=== PATIENT | female | born 1950 | race Caucasian/White ===

== ENCOUNTER → 2020-03-27 | Outpatient (CLI) | payer MEDICARE ==
[~2020-03-27] MED LIST: B-122500 PO; CALC1TAB63 PO; CIPR-249 PO; D31000TA2 PO; ECOT81TA5 PO; FLUTISP INH; GLUCINJ SC; HYDR-3363 PO; IBUP200C25 PO; LIDOCAINE 1% MDV 20ML VIAL As Ordered ONE; METF-838 PO; METR-135 PO; NOVOINJ3 SC; OMEP-221 PO; PRAV10TA3 PO; SODIUM BICARBONATE 8.4% INJ 50MEQ 50 ML VIAL As Ordered ONE; SPIR50TA4 PO; TRAD5TAB PO; TRES1INJ SC; URSO300C3 PO; VITA1CAP25 PO; VITMTA PO; ZINC1TAB2 PO
[2020-03-27 13:40] VITALS: BP 116/78
--- NOTE | 2020-03-27 16:45 | REP ---
INDICATION: RT ENLARGED LYMPH NODE. COMPARISON: None. TECHNIQUE: The procedure was performed by Thuy Casas [facility], under the direct supervision of Dr. Ervin. The risks and benefits of the procedure were explained to the patient and an informed consent was obtained both verbally and written. Directly prior to the start of the procedure a formal time-out was completed in the procedure room. FINDINGS: Using ultrasound guidance the right axillary lymph node was localized. The skin was prepped and draped in a sterile fashion. Five mL of buffered lidocaine was used as a local anesthetic. Using ultrasound guidance a 17/18 gauge coaxial needle biopsy system was inserted and advanced into the right axillary lymph node. Eight core biopsy specimens were obtained. Four specimens were sent to our lab here, and remaining 4 were sent out in RPMI solution, for further testing The patient tolerated the procedure well and there were no immediate complications. After the appropriate amount of monitored convalescence the patient was discharged from the department. IMPRESSION: 1. Ultrasound-guided right axillary lymph node biopsy. <Electronically signed by Thuy Casas > 03/27/20 1520 <Electronically signed by Joselito Ervin > 03/27/20 1641
== END ==
LOC: M IRPRO 12:19
PROVIDERS: ATTEND Internal Medicine Medical Oncology
DX: C91.10 Chronic lymphocytic leukemia of B-cell type not having achieved remission (principal); C83.00 Small cell B-cell lymphoma, unspecified site; R59.0 Localized enlarged lymph nodes; Z79.4 Long term (current) use of insulin; Z79.82 Long term (current) use of aspirin; Z79.899 Other long term (current) drug therapy; Z88.5 Allergy status to narcotic agent; Z88.6 Allergy status to analgesic agent; Z88.8 Allergy status to other drugs, medicaments and biological substances

== ENCOUNTER → 2020-05-02 | Outpatient (CLI) | payer MEDICARE, OTHER ==
[~2020-05-02] MED LIST changes: -LIDOCAINE 1% MDV 20ML VIAL As Ordered ONE; +SITA50TAB PO; -SODIUM BICARBONATE 8.4% INJ 50MEQ 50 ML VIAL As Ordered ONE
--- NOTE | 2020-05-04 15:18 | REP ---
INDICATION: RESTAGING LYMPHOMA RIGHT AXILLARY LYMPHNODE. Right axillary lymphadenopathy seen on recent breast MRI study. 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 There is apparently also history of nodular peritoneal thickening posterior to a collection in the left upper quadrant. 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 COMPARISON: Comparison sonography February 14, 2020. Comparison MRI study of the abdomen is from [facility] 13 January 2020. Comparison breast MRI study is retrieved from January 18, 2020 done at [facility].. TECHNIQUE: Forty-nine minutes following the intravenous injection of a 8.60 mCi dose of F-18 FDG, three-dimensional PET scintigraphy is acquired from the skull base to the proximal thighs. Triplanar noncontrast CT scanning is acquired through the same anatomic range for attenuation correction, and image registration with scan parameters optimized to minimize radiation exposure to the patient. PET scintigraphy and CT datasets were fused and displayed on a workstation with multiplanar and projection display capability. FINDINGS: The head and neck soft tissues are unremarkable. No adenopathy is seen. There is no visible adenopathy in either axilla. Normal appearing axillary lymph nodes are observed and no hypermetabolic uptake is seen within them on either side. Maximum standard uptake value on the right in axillary lymph node is 1.75 and on the left 0.96. No abnormal pulmonary parenchymal hypermetabolic uptake is seen. No intrathoracic hypermetabolic uptake is observed. In the abdomen and pelvis postoperative changes are seen in the pancreatic bed. 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 This spherical density measures 4.0 cm in greatest diameter. There is a adjacent smaller nodular density 1.5 cm in diameter. Neither of these is hypermetabolic. They are both unchanged from the January 13, 2020 prior MRI study images. Maximum standard uptake value in the larger spherical density is 2.88. There is no abnormal fluid collection seen. No abnormal abdominal or pelvic hypermetabolic uptake is observed. There is a ventral hernia trans [place] omental fat in the anterior midline. No other abnormal frandy uptake is seen. IMPRESSION: Negative PET scintigraphy. 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 No abnormal frandy hypermetabolic uptake is seen. <Electronically signed by Joseph Martinez > 05/04/20 [id number]
== END ==
LOC: M PLARAD 11:21
PROVIDERS: ATTEND Internal Medicine Medical Oncology
DX: C84.0 Mycosis fungoides (principal); C91.10 Chronic lymphocytic leukemia of B-cell type not having achieved remission; R59.0 Localized enlarged lymph nodes; Z79.4 Long term (current) use of insulin; Z79.82 Long term (current) use of aspirin; Z79.899 Other long term (current) drug therapy; Z88.5 Allergy status to narcotic agent; Z88.8 Allergy status to other drugs, medicaments and biological substances

== ENCOUNTER → 2021-02-23 | Outpatient (CLI) | payer OTHER ==
[~2021-02-23] MED LIST changes: +COVI100V IM; +PROAAER10 INH; +PROHANCE 279.3MG/ML 5ML VIAL As Ordered ONE
--- NOTE | 2021-02-26 09:30 | REP ---
INDICATION: GENETIC SUSP OF BREAST CA. COMPARISON: Mammogram 08/31/2020, MRI 01/18/2020. TECHNIQUE: Three [facility] MRI imaging was performed with a dedicated breast coil. Axial, coronal, and sagittal T1 and T2 weighted scans were obtained with and without fat saturation in the usual fashion. The study includes dynamically acquired post gadolinium-enhanced imaging with image subtraction. Maximum intensity projection and multi planar reformation imaging is included as well. This study is interpreted with the aid of [employer]EMING[employer]AY, an FDA approved computer aided detection (CAD) software program, on a dedicated breast MRI workstation. The gadolinium enhancement dose is 8 mL of intravenous ProHance. FINDINGS: Moderate fibroglandular tissue is present bilaterally. There is mild bilateral axillary adenopathy, with several bilateral axillary lymph nodes identified. The findings are similar to the prior exam, and are compatible with the patient's history of leukemia. There is moderate background parenchymal enhancement. No significant cystic change is seen. There is no suspicious enhancing mass or morphologic abnormality. IMPRESSION: BI-RADS category 2, benign bilateral breast MRI. Stable mildly enlarged lymph nodes in the axillary regions, similar to the prior exam, compatible with the patient's history of leukemia. No suspicious enhancing mass or morphologic abnormality. <Electronically signed by Joselito Ervin > 02/26/21 [id number]
== END ==
LOC: M RAD 10:22
PROVIDERS: ATTEND Nurse Practitioner Women's Health
DX: Z91.89 Other specified personal risk factors, not elsewhere classified (principal); Z15.01 Genetic susceptibility to malignant neoplasm of breast; Z80.3 Family history of malignant neoplasm of breast
CPT/HCPCS: A9576; C8908

== ENCOUNTER → 2021-08-31 | Outpatient (CLI) | payer OTHER ==
[~2021-08-31] MED LIST changes: -D31000TA2 PO; -METR-135 PO; +METR-369 PO; -OMEP-221 PO; +OMEP40CA5 PO; +OSTETAB2 PO; -PROHANCE 279.3MG/ML 5ML VIAL As Ordered ONE; +VITA100093 PO
== END ==
LOC: M WHC 09:17
PROVIDERS: ATTEND Nurse Practitioner Women's Health
DX: Z12.31 Encounter for screening mammogram for malignant neoplasm of breast (principal); Z15.01 Genetic susceptibility to malignant neoplasm of breast; Z91.89 Other specified personal risk factors, not elsewhere classified; Z80.3 Family history of malignant neoplasm of breast; R92.8 Other abnormal and inconclusive findings on diagnostic imaging of breast

== ENCOUNTER → 2021-09-12 | Outpatient (CLI) | payer OTHER | LOC: M WHC 08:17 | PROVIDERS: ATTEND Nurse Practitioner Women's Health | DX: R92.8 Other abnormal and inconclusive findings on diagnostic imaging of breast (principal); Z15.01 Genetic susceptibility to malignant neoplasm of breast; Z91.89 Other specified personal risk factors, not elsewhere classified; Z80.3 Family history of malignant neoplasm of breast | CPT/HCPCS: 77065; G0279 ==

== ENCOUNTER → 2022-03-18 | Outpatient (CLI) | payer OTHER ==
[~2022-03-18] MED LIST changes: +FLUO100P5; +PERI12LIQ; +PROHANCE 279.3MG/ML 5ML VIAL ONE; +ROSU5TAB5; +URSO250T2 PO
== END ==
LOC: M PLAIMG 08:39
PROVIDERS: ATTEND Nurse Practitioner Women's Health
DX: R92.2 Inconclusive mammogram (principal); Z80.3 Family history of malignant neoplasm of breast; Z15.01 Genetic susceptibility to malignant neoplasm of breast; Z91.89 Other specified personal risk factors, not elsewhere classified
CPT/HCPCS: A9576; C8908

== ENCOUNTER → 2022-03-27 | Outpatient (CLI) | payer OTHER ==
[~2022-03-27] MED LIST changes: +ALBU8.5H INH; -PROHANCE 279.3MG/ML 5ML VIAL ONE; -ROSU5TAB5; +ROSU5TAB5 PO; +TRAM50TA2 PO; +XARE10TA PO; +XARE15TA PO
== END ==
LOC: M WHC 08:27
PROVIDERS: ATTEND Nurse Practitioner Women's Health
DX: R92.8 Other abnormal and inconclusive findings on diagnostic imaging of breast (principal); N60.12 Diffuse cystic mastopathy of left breast; N63.20 Unspecified lump in the left breast, unspecified quadrant; R59.0 Localized enlarged lymph nodes

== ENCOUNTER → 2022-03-27 | Outpatient (CLI) | payer OTHER ==
[2022-03-27 12:43] VITALS: BP 112/76
== END ==
LOC: M WHCPRO 08:30
PROVIDERS: ATTEND Surgery
DX: R92.8 Other abnormal and inconclusive findings on diagnostic imaging of breast (principal); N63.21 Unspecified lump in the left breast, upper outer quadrant; N63.25 Unspecified lump in the left breast, overlapping quadrants; R59.0 Localized enlarged lymph nodes
CPT/HCPCS: 10035; 19083; 19084; 38505; 76642; 77065; 88305; A4648; G0279

== ENCOUNTER → 2022-05-06 | Outpatient (CLI) | payer OTHER | LOC: M RADPRO 12:56 | PROVIDERS: ATTEND Surgery | DX: C50.912 Malignant neoplasm of unspecified site of left female breast (principal) | CPT/HCPCS: 78195; A9520 ==

== ENCOUNTER 2022-05-07 05:58 | Day surgery (SDC) | payer OTHER ==
[~2022-05-07] VITALS: Ht 160 cm; Wt 86.2 kg
[~2022-05-07 05:58] MED LIST changes: -TRAM50TA2 PO
[2022-05-07] MEDS ORDERED: ceFAZolin SOD 2 GM in IV 1 EA IV ONE (06:00)
[2022-05-07] MEDS ORDERED: HEPARIN SOD (PORCINE) 5000UNITS/ML 1ML VIAL/SYRINGE SQ ONE (06:00)
[2022-05-07] MEDS ORDERED: NS 1,000 ML IV ONE (06:00)
[2022-05-07] MEDS ORDERED: INSULIN LISPRO (NovoLOG) PER UNIT SC PRN (06:35)
[2022-05-07] MEDS ORDERED: LR 1,000 ML IV SCH ×2 (06:35→10:15)
[2022-05-07] MEDS ORDERED: METHYLENE BLUE 0.5% (5MG/ML) 10 ML AMP (PROVAYBLUE) As Ordered ONE (07:06)
[2022-05-07] MEDS ORDERED: BUPIVACAINE HCL 0.25% 30ML VIAL As Ordered ONE (07:06)
[2022-05-07] MEDS ORDERED: LIDOCAINE 1% SDV 30ML VIAL As Ordered ONE (07:06)
[2022-05-07] MEDS ORDERED: propofoL 200 MG/20 ML VIAL As Ordered ONE (07:08)
[2022-05-07] MEDS ORDERED: ONDANSETRON 4MG 2ML VIAL As Ordered ONE (07:08)
[2022-05-07] MEDS ORDERED: ROCURONIUM BROMIDE 50MG/5ML VIAL As Ordered ONE (07:08)
[2022-05-07] MEDS ORDERED: fentaNYL 100 MCG/2 ML INJECTION As Ordered ONE (07:08)
[2022-05-07] MEDS ORDERED: LIDOCAINE 2% 100MG/5ML SDV (FOR ANES.) As Ordered ONE (07:08)
[2022-05-07] MEDS ORDERED: ACETAMINOPHEN 1000MG 100ML IV BAG As Ordered ONE (07:08)
[2022-05-07] MEDS ORDERED: MIDAZOLAM INJ 2MG/2ML VIAL As Ordered ONE (07:09)
[2022-05-07] MEDS ORDERED: SUCCINYLCHOLINE 100MG/5ML SYRINGE As Ordered ONE (08:11)
[2022-05-07] MEDS ORDERED: METOCLOPRAMIDE INJ 10MG/2ML VIAL As Ordered ONE (08:13)
[2022-05-07] MEDS ORDERED: HYDROmorphone HCL 2MG/ML 1ML VIAL As Ordered ONE (08:17)
[2022-05-07] MEDS ORDERED: ePHEDrine SULFATE 25 MG/5 ML(5MG/ML) SYRINGE As Ordered ONE ×2 (08:26→09:12)
[2022-05-07] MEDS ORDERED: ONDANSETRON 4MG 2ML VIAL IV PRN (10:15)
[2022-05-07] MEDS ORDERED: fentaNYL 100 MCG/2 ML INJECTION IV PRN (10:15)
[2022-05-07] MEDS ORDERED: TRAM50TA2 PO (10:37)
[2022-05-07] MEDS: HYDROMORPHONE HCL 0.5 MG/ 0.5 ML SYRINGE IV PRN ×2 (11:51→11:56)
[2022-05-07 13:00] VITALS: BP 144/75
== END 2022-05-07 13:00 | disposition home or self-care (01) ==
LOC: M SDC 05:58
PROVIDERS: ATTEND Surgery
DX: D05.12 Intraductal carcinoma in situ of left breast (principal); C91.10 Chronic lymphocytic leukemia of B-cell type not having achieved remission; Z15.01 Genetic susceptibility to malignant neoplasm of breast; Z80.3 Family history of malignant neoplasm of breast; E11.9 Type 2 diabetes mellitus without complications; G43.909 Migraine, unspecified, not intractable, without status migrainosus; K21.9 Gastro-esophageal reflux disease without esophagitis; E78.5 Hyperlipidemia, unspecified; Z79.899 Other long term (current) drug therapy; Z79.84 Long term (current) use of oral hypoglycemic drugs; Z79.82 Long term (current) use of aspirin; Z79.4 Long term (current) use of insulin; Z79.01 Long term (current) use of anticoagulants; Z88.5 Allergy status to narcotic agent; Z88.6 Allergy status to analgesic agent; Z88.8 Allergy status to other drugs, medicaments and biological substances
CPT/HCPCS: 19301; 36415; 38525; 76942; 86850; 86900; 86901; 88307; A4648; J0330; J0690; J1100; J1170; J2250; J2405; J2765; J3010

== ENCOUNTER → 2022-06-04 | Outpatient (RCR) | payer OTHER ==
[~2022-06-04] MED LIST changes: +LETR2.5T2 PO; +TRAM50TA2 PO
== END ==
LOC: M ONCR 13:44
PROVIDERS: ATTEND General Practice
DX: C50.412 Malignant neoplasm of upper-outer quadrant of left female breast (principal)

== ENCOUNTER 2022-06-25 11:07 | Outpatient (RCR) | payer OTHER | END 2022-07-05 | LOC: M ONCR 11:07 | PROVIDERS: ATTEND General Practice | DX: C50.412 Malignant neoplasm of upper-outer quadrant of left female breast (principal) ==

== ENCOUNTER → 2023-07-03 | Outpatient (CLI) | payer OTHER ==
[~2023-07-03] MED LIST changes: +MULT1TAB8 PO; +OMEP-173 PO
== END ==
LOC: M ONCR 10:10
PROVIDERS: ATTEND General Practice
DX: C50.412 Malignant neoplasm of upper-outer quadrant of left female breast (principal); R52 Pain, unspecified; Z15.01 Genetic susceptibility to malignant neoplasm of breast; Z79.4 Long term (current) use of insulin; Z79.84 Long term (current) use of oral hypoglycemic drugs; Z79.811 Long term (current) use of aromatase inhibitors; Z79.899 Other long term (current) drug therapy; Z85.6 Personal history of leukemia; Z88.5 Allergy status to narcotic agent; Z88.8 Allergy status to other drugs, medicaments and biological substances; Z92.3 Personal history of irradiation

== ENCOUNTER → 2024-07-02 | Outpatient (CLI) | payer MEDICARE ==
[~2024-07-02] MED LIST changes: +ALEN70TA82 PO; +OMEP1CAP73 PO; +ROSU5TAB49 PO; -ROSU5TAB5 PO
== END ==
LOC: M ONCR 09:51
PROVIDERS: ATTEND General Practice
DX: C50.412 Malignant neoplasm of upper-outer quadrant of left female breast (principal); Z79.4 Long term (current) use of insulin; Z79.84 Long term (current) use of oral hypoglycemic drugs; Z79.811 Long term (current) use of aromatase inhibitors; Z79.899 Other long term (current) drug therapy; Z80.49 Family history of malignant neoplasm of other genital organs; Z85.6 Personal history of leukemia; Z92.3 Personal history of irradiation